=== PATIENT | male | born 1995 | race Hispanic/Latino ===

== ENCOUNTER 2017-06-21 01:29 | Emergency (ER) | payer OTHER ==
[2017-06-21 01:34] VITALS: TEMP 97.6; O2SAT 99
--- NOTE | 2017-06-21 01:52 | ED PDOC ---
HPI: Psych/Substance Abuse Time Seen by Provider: 06/21/17 01:35 Chief Complaint (Nursing): Alcohol Ingestion Chief Complaint (Provider): etoh History Per: Patient, EMS Additional History Per: Patient, EMS Additional Complaint(s): 21 y/o male brought in by EMS for acute alcohol intoxication. Patient admits to drinking tonight, denies acute medical or psychiatric complaints. Past Medical History Reviewed: Historical Data, Nursing Documentation, Vital Signs Vital Signs: Last Vital Signs Temp 97.6 F 06/21/17 01:31 Pulse 120 H 06/21/17 01:31 Resp 18 06/21/17 01:31 BP Pulse Ox 99 06/21/17 01:31 - Medical History PMH: No Chronic Diseases - Surgical History Surgical History: No Surg Hx - Family History Family History: States: No Known Family Hx - Social History Current smoker - smoking cessation education provided: No Alcohol: Social Drugs: Cannabis - Allergies Allergies/Adverse Reactions: Allergies Allergy/AdvReac Type Severity Reaction Status Date / Time No Known Allergies Allergy Verified 06/21/17 01:31 Review of Systems ROS Statement: Except As Marked, All Systems Reviewed And Found Negative Physical Exam - Reviewed Nursing Documentation Reviewed: Yes Vital Signs Reviewed: Yes - Physical Exam Appears: Positive for: Well, Non-toxic, No Acute Distress Head Exam: Positive for: ATRAUMATIC, NORMAL INSPECTION, NORMOCEPHALIC Skin: Positive for: Normal Color Cardiovascular/Chest: Positive for: Regular Rate, Rhythm Respiratory: Positive for: Normal Breath Sounds Gastrointestinal/Abdominal: Positive for: Normal Exam Extremity: Positive for: Normal ROM Neurologic/Psych: Positive for: Alert, Oriented (x3), Gait (steady) - ECG O2 Sat by Pulse Oximetry: 99 - Progress ED Course And Treament: 2:45 Friend at bedside to take patient home. Patient awake, alert, oriented x3. Ambulating steady gait. Stable for discharge. Disposition - Clinical Impression Clinical Impression: Alcohol intoxication - Patient ED Disposition Is Patient to be Admitted: No Counseled Patient/Family Regarding: Diagnosis, Need For Followup - Disposition Disposition: Routine/Home Disposition Time: 02:44 Condition: STABLE Instructions: Alcohol Intoxication (ED)
[2017-06-21 02:47] VITALS: BP 121/71; PULSE 101; RESP 16
== END 2017-06-21 02:47 | disposition home or self-care (01) ==
LOC: H.ER 01:29
DX: F10.129 Alcohol abuse with intoxication, unspecified (principal)